=== PATIENT | male | born 1935 | race Caucasian/White ===

== ENCOUNTER 2022-12-18 09:02 | Inpatient (IN) | payer OTHER ==
[~2022-12-18] VITALS: Ht 185.4 cm; Wt 92.6 kg
[2022-12-18 09:27] LABS: BASOPHILS ABSOLUTE AUTO 0.03 K/mm3 (0.00-0.23); BASOPHILS PERCENT AUTO 0 % (0-2); EOSINOPHILS ABSOLUTE AUTO 0.09 K/mm3 (0.00-0.68); EOSINOPHILS PERCENT AUTO 1 % (0-6); Hematocrit 47.3 % (37.0-53.0); Hemoglobin 15.8 g/dL (13.5-17.5); IMMATURE GRAN ABSOLUTE AUTO 0.11 K/mm3 (0.00-0.10); IMMATURE GRAN PERCENT AUTO 1 % (0-1); LYMPHOCYTES PERCENT AUTO 12 % (21-46); MONOCYTES ABSOLUTE AUTO 0.94 K/mm3 (0.16-1.47); MONOCYTES PERCENT AUTO 9 % (4-13); Mean Corpuscular HGB 31.3 pg (26.0-34.0); Mean Corpuscular HGB Conc 33.4 g/dL (31.5-36.5); Mean Corpuscular Volume 94 fL (80-100); Mean Platelet Volume 9.3 fL (9.1-12.4); NEUTROPHILS ABSOLUTE AUTO 8.04 K/mm3 (1.96-9.15); NEUTROPHILS PERCENT AUTO 77 % (41-73); Platelet Count 185 K/mm3 (150-400); RDW Coefficient Variation 13.5 % (11.7-14.2); RDW Standard Deviation 46.5 fL (35.1-46.3); Red Blood Cell Count 5.05 M/mm3 (4.30-5.90); White Blood Cell Count 10.41 K/mm3 (4.00-11.30)
[2022-12-18 09:56] LABS: Albumin, Blood 3.6 g/dL (3.4-5.0); Albumin/Globulin Ratio 1.2 (0.8-1.8); Bilirubin, Total 0.6 mg/dL (0.1-1.0); Bun/Creatinine Ratio 30.2 (12.0-20.0); Calcium, Blood 9.7 mg/dL (8.5-10.1); Creatinine, Blood 0.83 mg/dL (0.60-1.20); Globulin, Blood 3.1 g/dL (2.2-4.0); Potassium, Blood 4.2 mmol/L (3.5-5.5); Total Protein, Blood 6.7 g/dL (6.4-8.2)
[2022-12-18] MEDS ORDERED: ACET500 PO (10:49)
[2022-12-18] MEDS ORDERED: CARBOXYMETHYLC1 EACH BOTHEYES (10:50)
[2022-12-18] MEDS ORDERED: Aspir 8181 MG PO (10:50)
[2022-12-18] MEDS ORDERED: COENZYME Q10100 MG PO (10:50)
[2022-12-18] MEDS ORDERED: ELIGARD45 MG SC (10:51)
[2022-12-18] MEDS ORDERED: FLUT1DIS5 INH (10:52)
[2022-12-18] MEDS ORDERED: IPRAT-ALBUT 0.5-3 ML INH (10:53)
[2022-12-18] MEDS ORDERED: GLUCOSAMINE-CH1 EA48 PO (10:53)
[2022-12-18] MEDS ORDERED: MULVITA PO (10:54)
[2022-12-18] MEDS ORDERED: ZOCOR20 MG PO (10:54)
[2022-12-18] MEDS ORDERED: TOPROL XL25 MG PO (10:54)
[2022-12-18] MEDS ORDERED: TIOT18 INH (10:54)
--- NOTE | 2022-12-18 10:57 | NUR ---
[facility] ER Consult - Medical proxy/NOK is , Dee Steele [phone] Nephew, Aryan Steele, also listed on POLST [phone]. I met with pt and his at bedside. Pt goes by "RED". He is alert and oriented x 4. He exhibits memory and word finding deficits during our long visit. Pt and had been living in [place], receiving care at the [facility] there until September, when they came here, staying with a nephew in [place]. They have been trying to work with the [facility] and have visited the urgent care a number of times for breathlessness, weakness s/s. Before leaving [place], pt was hospitalized and a hospitalist convinced the couple that pt would be needing more care and a community that has assisted living available as he felt would not be able to maintain home care as pt's ilness progressed. Pt and understood the Dr to say that he had a terminal lung condidition. In reviewing pt's d/c paperwork from hospital in Aug, echo, DC RX list and Pulm Funtion test, I am unable to discern an imminent terminal cond. Pt is 87 and has several moderate chronic conditions and prostate cancer that he is receiving "chemo injections" for every 6 months. He has a recently completed POLST form stating orders/wishes for DNR status and comfort measures only. His current s/s are distressing to pt. He is not experiencing comfort/relief in regard to breathlessness and resulting anxiety, profound fatigue & inability to care for himself, complete ADL's. Red reports inability to get air in, which would be consistent with his CHF and COPD dx listed on prev hospital stay. Pt has 3+-4 pitting edema LE caleb. Pt states he is not on a diuretic. and pt seem to have some confusion re: his beta quang. Pt states he ran out. states he has not and has been taking. 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 Pt/ feel that [facility] has been [facility] and not receptive to reviewing medical records from [place]. states VA Drs locally will not communicate or contact Drs in [place]. They have done some preliminary research on assisted living/intermediate card tender care facilities but state they do not have the funds to pay for them privately. feels she can no longer care for her at their nephews home. She is uncertain if Red is service connected. I reviewed some community health care paperwork stating pt has been approved for 12 hours of assist per week. [facility] is going to look further into pt's [facility] benefits. That paperwork was shared with him. Case conferenced with ER Dr before and after my visit. Pt to be given diuretic and may be admitted due to elevated troponin. I will contact the [facility] RN Monday to request f/u and assist to pt/ in navigating their advanced care planning and s/s management and speak with CM re: assist with d/c planning then also. VO for DNR entered. POLST form copied and placed on Chart. Copy to be sent to Medical records also.
[2022-12-18 17:07] VITALS: BP 120/84
[2022-12-18 20:02] VITALS: BP 126/79
[2022-12-19 04:34] VITALS: BP 117/74
[2022-12-19 05:00] LABS: Hematocrit 47.3 % (37.0-53.0); Hemoglobin 15.5 g/dL (13.5-17.5); Mean Corpuscular HGB 31.1 pg (26.0-34.0); Mean Corpuscular HGB Conc 32.8 g/dL (31.5-36.5); Mean Corpuscular Volume 95 fL (80-100); Mean Platelet Volume 9.2 fL (9.1-12.4); Platelet Count 165 K/mm3 (150-400); RDW Coefficient Variation 13.3 % (11.7-14.2); RDW Standard Deviation 46.5 fL (35.1-46.3); Red Blood Cell Count 4.99 M/mm3 (4.30-5.90); White Blood Cell Count 11.91 K/mm3 (4.00-11.30)
[2022-12-19 05:40] LABS: Bun/Creatinine Ratio 24.8 (12.0-20.0); Creatinine, Blood 1.21 mg/dL (0.60-1.20); Potassium, Blood 4.1 mmol/L (3.5-5.5)
--- NOTE | 2022-12-19 06:25 | NUR ---
PT CONCERNED ABOUT TYLENOL AMOUNTS ORDERED, PAIN. FLEXERIL EFFECTIVE. PT ABLE TO SIT AT BEDSIDE, DANGLING FEET WITH ASSIST, STANDS AND USES URINAL SBA, FREQUENT URINATION THROUGHOUT SHIFT. 2-3L O2 NC NEEDED.
[2022-12-19 07:20] VITALS: BP 97/70
--- NOTE | 2022-12-19 14:32 | NUR ---
Summary of multiple visits and case conferencing with [facility] Care team, , family & LEXY t/o day. Additional NOK contact-Christin Hester (kadi) [phone] Pt appears to be feeling much better than during my visit in ER yesterday. agrees that he looks to be feeling better, however, pt reports feeling about the same. He is sitting at the side of the bed independently today. Daughter Christin has arrived from [facility] to help her parents sort out some of the social and caregiving issues. She works full time paramedic in [facility] and states her parents have been trying to sort these things out on their own and with some help from their nephew Aryan Steele [phone]. Christin is realizing that her parents are overwhelmed and also cognitively declining to the point that they are unable to follow thru and complete the needed tasks. We discussed her dad's chronic disease processess and how they affect his breathing, independence and the anticipated trajectory/prognosis given by Drs r/t his chronic lung and heart disease. Christin's questions were answered. I reviewed pt's current POLST with pt, and kadi. Pt is alert and oriented x 4 at this time and requests that we complete a new POLST with DNR and limited treatment instead of comfort measures only as checked on the POLST done at the [facility]. Pt would want to return to the hospital for acute illnesses and medication adjustments if it would improve his s/s. He does not want any invasive or aggressive intervention if medication adjustment failed to improve his s/s and overall condition. New POLST fully completed and signed by provider. Original and copies given to with copies sent to medical records and placed on the chart. Current acute care records to be faxed to [facility]. I spoke with them by phone and they are familiar with pt, have been working with nephew to provide DME and assist. Pt does not have an assigned PCP with first appointment in MARCH. Medication access has been an issue with rxs still being provided per [facility]. I passed on instructions to pt's Kadi to call # on RX bottle and be sure address change completed for mailing of rxs to pt here in [place]. [place] states pt will not be able to get Rxs from [facility] until he is established with his new PCP in March. LEXY spoke with Kadi re: resources she is researching; VA and community, medicaid application and dc planning options. Much time spent reviewing medical records provided with kadi, pt and again. Unfortunately, pt and remain very convinced that pt prognosis is dire and imminent but medical records provided from [place] do not indicate that. I do not believe pt meets hospice criteria for Lung/heart dx or dementia at this time based on current assessment. That may change in the near future due to the progressive nature of his chronic comorbidities and advanced age/medical frailty. Kadi verbalizes understanding of all of above. Report to on my visit.
[2022-12-19 15:27] VITALS: BP 124/69
--- NOTE | 2022-12-19 16:05 | NUR ---
SHIFT SUMMARY PT A&OX4 AND IN PLEASENT MOOD T/O SHIFT. TOLERATING PO INTAKE WELL. UP W/ 1X ASSIST. CONT. USES URINAL. FAMILY INTO SEE PT T/O SHIFT. EDEMA IMPOVING SINCE YESTERDAY. VSS. CALL LIGHT W/IN REACH. PAIN MEDICATED PER EMAR, PT PREFERS TYLENOL. TELE IN PLACE, SR W/ BBB AND OCC. PVCS
[2022-12-19 20:11] VITALS: BP 96/61
[2022-12-20 03:23] VITALS: BP 132/74
--- NOTE | 2022-12-20 05:47 | NUR ---
SHIFT SUMMARY PATIENT ALERT AND ORIENTED X4. MEDICATED PER EMAR FOR HIS BACK PAIN. VITAL SIGNS STABLE. SPO2 97% ON 2 LITERS O2 VIA NC. PATIENT HAD A 4 BEAT RUN OF PVC'S AND AN 8 BEAT RUN OF V TACH PER HEEL ATTACHER WOOD. NO OTHER ISSUES NOTED OVERNIGHT. CALL LIGHT WITHIN REACH.
[2022-12-20 07:35] VITALS: BP 116/65
[2022-12-20] MEDS ORDERED: FURO40 PO (10:59)
[2022-12-20] MEDS ORDERED: JARDIANCE10 MG PO (11:01)
--- NOTE | 2022-12-20 14:03 | NUR ---
Or palliative care team called to update his needs to. will update hourly caregiver aon equipment sent.
== END 2022-12-20 14:08 | disposition home or self-care (01) | DRG 292 ==
LOC: ER 09:02 → MEDS 11:12 → ENPENDDIS 12-20 11:02 → MEDS 12-20 14:08
PROVIDERS: Emergency Medicine; ADMIT Internal Medicine
DX: I50.31 Acute diastolic (congestive) heart failure (principal); I5A Non-ischemic myocardial injury (non-traumatic); J96.11 Chronic respiratory failure with hypoxia; Z66 Do not resuscitate; Z51.5 Encounter for palliative care; E78.5 Hyperlipidemia, unspecified; J44.9 Chronic obstructive pulmonary disease, unspecified; G30.9 Alzheimer's disease, unspecified; F02.80 Dementia in other diseases classified elsewhere, unspecified severity, without behavioral disturbance, psychotic disturbance, mood disturbance, and anxiety; E11.9 Type 2 diabetes mellitus without complications; R54 Age-related physical debility; Z85.828 Personal history of other malignant neoplasm of skin; Z87.891 Personal history of nicotine dependence; Z99.81 Dependence on supplemental oxygen; Z85.46 Personal history of malignant neoplasm of prostate; Z88.8 Allergy status to other drugs, medicaments and biological substances; Z79.82 Long term (current) use of aspirin; Z79.899 Other long term (current) drug therapy
CPT/HCPCS: 36415; 71045; 80048; 80053; 83036; 83880; 84484; 85025; 85027; 93005; 93010; 93306; 94640; 94664; 94760; 96374; 97162; 97530; 99285-25; A9270; J1650; J1940